=== PATIENT | male | born 1950 | race Caucasian/White ===

== ENCOUNTER 2018-02-24 09:26 | Outpatient (CLI) | payer MEDICARE ==
--- NOTE | 2018-02-24 10:08 | RAD ---
PA AND LATERAL CHEST RADIOGRAPH: Date: 02-24-18 History: Dyspnea. Comparison: 08-01-15 FINDINGS: Cardiac silhouette and pulmonary vasculature are within normal limits. There are linear densities ove rlying the anterior aspect of the lower lobes on the lateral projection which may be related to linea r scarring or atelectasis. Similar findings were seen on study in 2013 suggesting that this represent s either superimposition of structures, scarring, and/or atelectasis. No consolidation or pleural flu id is seen. The lungs are otherwise clear. There has been no interval change from prior studies. IMPRESSION: Mild chronic lung changes without evidence of an acute cardiopulmonary process. POS: H
== END 2018-02-24 09:27 | disposition home or self-care (01) ==
LOC: RAD 09:26
PROVIDERS: ATTEND Internal Medicine Critical Care Medicine
DX: R06.00 Dyspnea, unspecified (principal)
CPT/HCPCS: 71046

== ENCOUNTER 2019-02-23 09:39 | Outpatient (CLI) | payer MEDICARE ==
--- NOTE | 2019-02-23 10:56 | RAD ---
CHEST TWO VIEWS: INDICATIONS: Dyspnea. COMPARISON: 02/24/2018 FINDINGS: No new consolidation, effusion, or discrete pneumothorax. The chest is similar in appearance to the prior exam. IMPRESSION: 1. Stable chest. 2. Chronic obstructive pulmonary disease. POS: C
== END 2019-02-23 09:40 | disposition home or self-care (01) ==
LOC: RAD 09:39
PROVIDERS: ATTEND Internal Medicine Critical Care Medicine
DX: R06.00 Dyspnea, unspecified (principal); J44.9 Chronic obstructive pulmonary disease, unspecified
CPT/HCPCS: 71046

== ENCOUNTER 2020-05-17 10:32 | Outpatient (CLI) | payer MEDICARE ==
--- NOTE | 2020-05-17 11:38 | RAD ---
TWO VIEW CHEST: HISTORY: Dyspnea. FINDINGS: Comparison is made to portable film of 04/18/2020. No definite infiltrate seen. Interstitial markings are mildly prominent but stable. Heart and media stinum unremarkable. Vasculature normal. Osseous structures are unremarkable. IMPRESSION: No acute process identified. POS: [facility]
== END 2020-05-17 10:33 | disposition home or self-care (01) ==
LOC: BICRAD 10:32
PROVIDERS: ATTEND Internal Medicine Critical Care Medicine
DX: R06.00 Dyspnea, unspecified (principal)
CPT/HCPCS: 71046